=== PATIENT | female | born 1970 | race Caucasian/White ===

== ENCOUNTER 2019-10-27 16:48 | Emergency (ER) | payer OTHER, SELFPAY ==
[2019-10-27] MEDS ORDERED: traMADol HCl 50 MG TAB ONE (17:24)
[2019-10-27] MEDS ORDERED: Ibuprofen 800 MG TAB ONE (17:24)
--- NOTE | 2019-10-27 18:37 | RAD ---
RIGHT ANKLE THREE VIEWS: 10/27/19 No fracture was seen. The ankle joint appears intact. A small calcaneal spur was noted. IMPRESSION: No acute bony findings. POS: HOME
== END 2019-10-27 17:52 | disposition home or self-care (01) ==
LOC: BURERS 16:48
DX: S93.422A Sprain of deltoid ligament of left ankle, initial encounter (principal); S30.0XXA Contusion of lower back and pelvis, initial encounter; F32.9 Major depressive disorder, single episode, unspecified; W10.9XXA Fall (on) (from) unspecified stairs and steps, initial encounter